=== PATIENT | male | born 1955 | race Caucasian/White ===

== ENCOUNTER 2016-09-12 18:05 | Emergency (ER) | payer BC, MEDICAID, OTHER ==
[2016-09-12] MEDS ORDERED: Succinylcholine 200 MG/10 ML MDV ONE (18:06)
[2016-09-12] MEDS ORDERED: Rocuronium 50 MG/5 ML Vial ONE (18:20)
[2016-09-12] MEDS ORDERED: Rocuronium 50 MG/5 ML Vial IV ONE (18:21)
[2016-09-12] MEDS ORDERED: Propofol 200 MG/20 ML SDV IVPUSH ONE (18:45)
[2016-09-12] MEDS ORDERED: Succinylcholine 200 MG/10 ML MDV IV STA (18:46)
[2016-09-12] MEDS ORDERED: Etomidate 2 MG/ML 10 ML SDV IVPUSH ONE (18:47)
[2016-09-12] MEDS ORDERED: Sodium Chloride 0.9% 1,000 ML IV ONE (18:48)
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
[2016-09-12 19:31] VITALS: BP 133/84
--- NOTE | 2016-09-13 09:21 | CR ---
Chest 1V Frontal HISTORY: INTUBATED FINDINGS: Portable chest, 1820 hours. Endotracheal tube is in place. The tip overlies the trachea approximately 2 cm above the larisa. Car diomediastinal silhouette is within normal limits. There is no vascular redistribution or pleural fl uid. Incomplete inspiration is noted. Mild atelectasis versus early infiltrate is present at the rig ht lung base. Remainder of the chest is clear. IMPRESSION: Tip of the endotracheal tube is about 2 cm above the larisa. Possible mild atelectasis v ersus early infiltrates right lung base. Poor inspiration is noted. No other acute chest abnormality is identified.
== END 2016-09-12 18:30 | disposition critical access hospital (66) ==
LOC: JP.ED 18:05
DX: T59.91XA Toxic effect of unspecified gases, fumes and vapors, accidental (unintentional), initial encounter (principal); T20 Burn and corrosion of head, face, and neck; T24.7 Corrosion of third degree of lower limb, except ankle and foot; T21.7 Corrosion of third degree of trunk; T23.7 Corrosion of third degree of wrist and hand; Y99.0 Civilian activity done for income or pay; Z79.899 Other long term (current) drug therapy; Z98.890 Other specified postprocedural states
CPT/HCPCS: 31500; 51702; 71010; 96374; 96375; 99285; A4217; J0330; J2704; J7040; J3490

== ENCOUNTER 2020-09-22 06:37 | Day surgery (SDC) | payer MEDICAID, MEDICARE, OTHER ==
[2020-09-22] MEDS ORDERED: Sodium Chloride 0.9% 1,000 ML IV SCH (07:15)
[2020-09-22] MEDS ORDERED: fentaNYL 100 MCG/2 ML SDV ONE (07:39)
[2020-09-22] MEDS ORDERED: Propofol 200 MG/20 ML SDV ONE (07:39)
[2020-09-22] MEDS ORDERED: Midazolam 1 MG/ML 2 ML SDV ONE (07:39)
[2020-09-22 08:53] VITALS: BP 116/73; PULSE 62
--- NOTE | 2020-09-22 09:14 | OR ---
DATE OF PROCEDURE: 09/22/2020 SURGEON: Kulwinder Koch MD PROCEDURE: Colonoscopy. FINDINGS: 1. Diverticulosis, [id number], distributed throughout entire colon. 2. No other gross abnormalities. COMPLICATIONS: None. BIOLOGIST AIDE: None. PREOPERATIVE DIAGNOSIS: Screening colonoscopy. POSTOPERATIVE DIAGNOSIS: Screening colonoscopy. RISKS: Risks, benefits, alternatives, and limitations including but not limited to infection, bleeding, perforation, false positives, and false negatives were explained to the patient and he wished to proceed. PROCEDURE IN DETAIL: The patient was placed in a left lateral decubitus position. Digital rectal exam was performed without abnormality. Scope was introduced and advanced atraumatically to the ileocecal valve. A photo was taken of the appendiceal orifice. Scope was brought back to the ascending, transverse, descending colon, and retroflexed. No evidence of old or new blood. No masses. No polyps. The diverticulosis would be described as mild to moderate without evidence of diverticulitis or bleeding throughout the entire colon. No abnormalities on retroflexion. Greater than 8 minutes was spent removing the scope. The prep was acceptable, approximately 95% of the luminal surface could be seen. The patient tolerated the procedure well. Kulwinder Koch MD /[id number]
== END 2020-09-22 08:55 | disposition home or self-care (01) ==
LOC: JP.SDS 06:37
PROVIDERS: ATTEND Surgery
DX: Z12.11 Encounter for screening for malignant neoplasm of colon (principal); K57.30 Diverticulosis of large intestine without perforation or abscess without bleeding; E78.5 Hyperlipidemia, unspecified; I10 Essential (primary) hypertension
CPT/HCPCS: G0121; J2250; J2704; J3010; J7030

== ENCOUNTER 2023-11-13 13:54 | Emergency (ER) | payer MEDICARE, OTHER ==
[2023-11-13 14:10] VITALS: BP 189/109; PULSE 78
[2023-11-13 15:03] LABS: BASOPHILS ABSOLUTE AUTO 0.05 K/uL (0.00-0.10); BASOPHILS PERCENT AUTO 0.7 % (0.1-1.3); EOSINOPHILS ABSOLUTE AUTO 0.22 K/uL (0.00-0.40); EOSINOPHILS PERCENT AUTO 3.3 % (0.0-5.4); HEMATOCRIT 39.5 % (38.4-49.7); HEMOGLOBIN 13.4 g/dL (12.9-16.9); IMMATURE GRAN ABSOLUTE AUTO 0.03 K/uL (0.00-0.23); IMMATURE GRAN PERCENT AUTO 0.4 % (0.0-0.7); LYMPHOCYTES ABSOLUTE AUTO 1.73 K/uL (0.8-3.3); LYMPHOCYTES PERCENT AUTO 25.7 % (11.4-47.7); MEAN CORPUSCULAR HEMOGLOBIN 28.8 pg (31.6-35.5); MEAN CORPUSCULAR HGB CONC 33.9 g/dL (31.6-35.5); MEAN CORPUSCULAR VOLUME 84.9 fL (81.4-99.0); MONOCYTES ABSOLUTE AUTO 0.55 K/uL (0.20-0.90); MONOCYTES PERCENT AUTO 8.2 % (3.3-12.6); NEUTROPHILS ABSOLUTE AUTO 4.14 K/uL (1.0-7.6); NEUTROPHILS PERCENT AUTO 61.7 % (40.0-78.1); PLATELET COUNT,PLT 249 K/uL (130-375); RED BLOOD CELL COUNT 4.65 M/uL (4.14-5.76); WHITE BLOOD CELL COUNT,WBC 6.7 K/uL (3.2-11.0)
[2023-11-13 15:26] LABS: CALCIUM 9.3 mg/dL (8.5-10.1); CREATININE 1.2 mg/dL (0.8-1.3); EST CRCL DRUG DOSING (CG) 56.21 mL/min; POTASSIUM,K 4.2 mmol/L (3.6-5.2); TROPONIN I HIGH SENSITIVITY 32.3 pg/mL (<=60.3)
[2023-11-13 15:30] LABS: ANION GAP 13.2 mmol/L (5.0-14.0)
== END 2023-11-13 16:38 | disposition home or self-care (01) ==
LOC: JP.ED 13:54
DX: K21.9 Gastro-esophageal reflux disease without esophagitis (principal); E78.00 Pure hypercholesterolemia, unspecified; I10 Essential (primary) hypertension; Z79.82 Long term (current) use of aspirin; Z79.899 Other long term (current) drug therapy
CPT/HCPCS: 36415; 71046; 71046-26; 80048; 84484; 85025; 93005; 99284